=== PATIENT | male | born 1980 | race Caucasian/White ===

== ENCOUNTER → 2020-07-21 15:06 | Outpatient (CLI) | payer OTHER, SELFPAY ==
--- NOTE | ~2020-07-21 | MR_ITS ---
EXAMINATION: MR lumbar spine wo con DATE: 07/21/2020 16:04 INDICATION: Chronic low back pain. TECHNIQUE: Magnetic resonance imaging (MRI) of the lumbar spine was performed without intravenous con trast. Sequences included sagittal T2-weighted FSE, sagittal T2-weighted FS FSE, sagittal T1-weighted FSE, and axial T2-weighted FSE. COMPARISON: Lumbar spine MRI 03/28/2015 FINDINGS: There is 3 mm retrolisthesis of L5 on S1. There are Schmorl's nodes at T11-T12. There is mi ldly decreased disc height at L3-L4 and severely decreased disc height at L5-S1. The distal spinal co rd signal intensity is normal. The conus medullaris is at L1. The following disc levels are specifica lly discussed: L1-L2: The disc does not extend beyond the endplate margin. There is mild bilateral facet joint osteo arthritis. There is no neural foraminal stenosis. There is no central canal stenosis. L2-L3: The disc does not extend beyond the endplate margin. There is moderate right and mild left fac et joint osteoarthritis. There is no neural foraminal stenosis. There is no central canal stenosis. L3-L4: The disc is mildly bulging. There is severe bilateral facet joint osteoarthritis. There is mil d bilateral neural foraminal stenosis. There is no central canal stenosis. L4-L5: The disc is mildly bulging. There is severe bilateral facet joint osteoarthritis. There is mil d bilateral neural foraminal stenosis. There is no central canal stenosis. L5-S1: The disc is bulging and has an annular fissure. There is moderate bilateral facet joint osteoa rthritis. There is mild right and moderate left neural foraminal stenosis. There is mild central geovanna l stenosis. IMPRESSION: 1. Moderate lumbar spondylosis, worsened from 03/28/2015. Reviewed, dictated and finalized at location A.
== END ==
PROVIDERS: Visit Provider Pain Medicine Interventional Pain Medicine
DX: M47.26 Other spondylosis with radiculopathy, lumbar region (principal); Z79.891 Long term (current) use of opiate analgesic
CPT/HCPCS: 72148

== ENCOUNTER 2021-09-11 02:29 | Observation (INO) | payer OTHER, SELFPAY ==
[2021-09-11] VITALS (18 sets, daily range): BP systolic 144–165; BP diastolic 80–93; PULSE 63–105; RESP 12–23; TEMP 36–36.6; O2SAT 91–99; BMI 40.4
--- NOTE | ~2021-09-11 | XR_ITS ---
EXAMINATION: XR abdomen/kub 1V EXAM DATE: 09/11/2021 03:20 INDICATION: Epigastric abdominal pain, history diverticulitis. TECHNIQUE: Frontal projection of the upper abdomen, frontal projection lower abdomen/pelvis for inter pretation. There is no prior study for comparison. FINDINGS: There are cholecystectomy clips. There is expected amount of colonic stool and gas. No small bowel dilation, nonobstructive bowel gas pattern. There are no suspicious calcifications jennifer ntified. There is no organomegaly suspected. The bones are unremarkable. There is no free intra peritoneal air. The lung bases are clear. IMPRESSION: Unremarkable abdomen x-ray exam. Reviewed, dictated and finalized at location A. INE MECHANIC
--- NOTE | ~2021-09-11 | CT_ITS ---
EXAMINATION: CTA abdomen pelvis EXAM DATE: 09/11/2021 06:01 INDICATION: Severe abdominal pain out of proportion. TECHNIQUE: Spiral CT angiogram of the abdomen and pelvis was performed following injection of 100 mL Omnipaque 350 solution contrast. Axial, coronal and sagittal images were reviewed. Maximum intensity projection 3-D reconstructions of the aorta were created by the technologist on dedicated workstation . The dose-length product (DLP) for this examination was 1795.15 mGy-cm. The exposure was tailored according to patient size (auto mA exposure control), and iterative reconstruction (ASIR) was used as additional dose reduction technique. Comparison is made to prior examination from earlier same date. FINDINGS: The aorta is normal in caliber. There is no aortic dissection. The mesenteric vessels enhan ce as expected. No stenosis. There is no nephrolithiasis or hydronephrosis. The prostate is unrema rkable. The bladder is unremarkable. There is hepatic steatosis without suspicious focal lesion jennifer ntified. Spleen, adrenal glands, pancreas are unremarkable. There are cholecystectomy clips. There is no retroperitoneal or pelvic lymphadenopathy. Small left inguinal fat-containing hernia. There is mild edema within the mesentery of the small bowel. There is mildly dilated mid small bowel without discrete transition point. Suspect some mild ileal wall thickening. Consider enteritis. There is moderate descending and sigmoid colonic colonic diverticulosis. There is no adjacent inflammator y change to suggest diverticulitis. The appendix is normal. There is expected amount of colonic stoo l. No free intraperitoneal gas. The heart is normal in size. There are no pericardial or pleural effusions. The lung bases are unremarkable. There are no osteoblastic or osteolytic lesions identi fied. IMPRESSION: 1. Persistent mild mid small bowel dilation and suspect mild ileal wall edema distal to this. Consid er enteritis. Vasculature normal. 2. Moderate colonic diverticulosis. 3. Subacute right L1-L3 transverse process fractures. 4. Hepatic steatosis. Reviewed, dictated and finalized at location A. SCRUB TECH IMPRESSION: 1. Persistent mild mid small bowel dilation and suspect mild ileal wall edema distal to this. Consider enteritis. Vasculature normal. 2. Moderate colonic diverticulosis. 3. Subacute right L1-L3 transverse process fractures. 4. Hepatic steatosis.
--- NOTE | ~2021-09-11 | CT_ITS ---
EXAMINATION: CT abdomen pelvis w con EXAM DATE: 09/11/2021 05:02 INDICATION: Upper abd pain, vomiting. TECHNIQUE: Spiral CT of the abdomen and pelvis was performed following intravenous injection of 100 m L Omnipaque 350. Axial, coronal and sagittal images of the abdomen and pelvis were reviewed. The do se-length product (DLP) for this examination was 1727.83 mGy-cm. The exposure was tailored according to patient size (auto mA exposure control), and iterative reconstruction (ASIR) was used as addition al dose reduction technique. Comparison is made to prior examination from 03/01/2015. FINDINGS: The liver, spleen, adrenal glands and pancreas are unremarkable. Gallbladder is unremarkab le. No biliary obstruction. Portal and splenic veins are patent. Kidneys enhance symmetrically. T here is no hydronephrosis. The prostate is unremarkable. The bladder is unremarkable. There is no retroperitoneal or pelvic lymphadenopathy. Small left inguinal fat-containing hernia. The appendix is normal. There is moderate scattered colonic diverticulosis. There is no adjacent inf lammatory change to suggest diverticulitis. Mild nonspecific mesenteric edema, with mildly dilated mi d small bowel loops and possible ileal wall edema distal to this. No discrete transition point and th e vascularity appears to be enhancing normally. Consider enteritis. There is expected amount of colon ic stool. No free intraperitoneal gas. The heart is normal in size. There are no pericardial or pleural effusions. The lung bases are unremarkable. There are no osteoblastic or osteolytic lesions identified. There are right L1-L3 subacute transverse process fractures. IMPRESSION: 1. Findings suspicious for enteritis. 2. Subacute right L1-L3 transverse process fractures. 3. Moderate colonic diverticulosis. Reviewed, dictated and finalized at location A. ER SUPERVISOR
--- NOTE | ~2021-09-11 | XR_ITS ---
EXAMINATION: XR chest 1V portable EXAM DATE: 09/11/2021 03:20 INDICATION: Low chest, epigastric pain . TECHNIQUE: Portable AP frontal chest x-ray was obtained. There is no prior study for comparison. FINDINGS: The lungs are clear. There are no pleural effusions. Cardiac silhouette is prominent but magnified on this AP technique. There is no pneumothorax suspected. The bones and soft tissues are unremarkable. IMPRESSION: No acute cardiopulmonary findings. Reviewed, dictated and finalized at location A. NEERING LIBRARIAN
--- NOTE | 2021-09-11 03:04 | ECG_ITS ---
Measurements Intervals [place] Rate: 83 P: 24 MS: 150 QRS: 48 QRSD: 94 T: 44 QT: 361 QTc: 426 Interpretive Statements SINUS RHYTHM NORMAL ECG Electronically Signed On 09-11-2021 6:42:49 [employer]LET [employer]ONE POSITIONER by Javier Hodges D.O.
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
[2021-09-11 03:29] LABS: Basophils Absolute Auto 0.1 K/mm3 (0.0-0.1); Basophils Percent Auto 0.6 % (0.2-1.2); Eosinophils Absolute Auto 0.3 K/mm3 (0-0.3); Eosinophils Percent Auto 2.2 % (0-4.4); Hematocrit 47.2 % (42.0-52.0); Hemoglobin 16.7 g/dL (14.0-18.0); Immature Granulocyte Absolute 0.04 K/mm3 (0.00-0.031); Immature Granulocyte Percent A 0.3 % (0-0.5); Lymphocytes Absolute Auto 2.24 K/mm3 (0.9-3.2); Lymphocytes Percent Auto 15.5 % (18.3-44.2); Mean Corpuscular HGB Conc 35.4 g/dl (32-36); Mean Corpuscular Hemoglobin 30.3 pg (26-34); Mean Corpuscular Volume 85.7 fl (80-100); Mean Platelet Volume 10.6 fl (7.4-10.4); Monocytes Absolute Auto 0.9 K/mm3 (0.1-0.6); Monocytes Percent Auto 5.9 % (2.6-8.5); Neutrophils Absolute Auto 10.9 K/mm3 (1.3-6.7); Neutrophils Percent Auto 75.5 % (45.5-73.1); Platelet Count Result 323 k/mm3 (150-375); Red Blood Count 5.51 M/mm3 (4.6-6.20); Red Cell Distribution Width 12.4 % (11.5-14.5); White Blood Count 14.4 K/mm3 (4.5-10.0)
[2021-09-11] MEDS: ONDANSETRON INJ 4 MG/2 ML VIAL IV PUSH (03:39)
[2021-09-11] MEDS: HYDROmorphone HCL INJ (*CRX) 1 MG/ML SYR 0.5 MG IV PUSH ×2 (03:39→04:12)
[2021-09-11] MEDS: SODIUM CHLORIDE 0.9% IV 1,000 ML 999 ML IV CONT ×2 (03:41→05:37)
[2021-09-11 03:52] LABS: Alanine Aminotransferase 58 U/L (4-50); Albumin Level 4.7 g/dL (3.5-5.1); Alkaline Phosphatase 105 U/L (38-126); Anion Gap 9 mmol/L (8-16); Aspartate Amino Transferase 42 U/L (17-59); Bilirubin,Total 0.8 mg/dL (0.2-1.3); Blood Urea Nitrogen 13 mg/dL (9-20); Calcium 9.5 mg/dL (8.4-10.2); Carbon Dioxide 23 mmol/L (22-30); Chloride 100 mmol/L (98-107); Estimated CRCL calculation 154 ml/min; Estimated Glomerular Filt Rate > 60; Glucose 237 mg/dL (65-110); Lipase 122 U/L (23-300); Potassium 4.6 mmol/L (3.4-5.0); Sodium 132 mmol/L (137-145)
[2021-09-11 03:56] LABS: Lactic Acid Reflex 2.3 mmol/L (0.7-2.1)
[2021-09-11] MEDS: HYDROmorphone HCL INJ (*CRX) 1 MG/ML SYR IV PUSH (05:43)
[2021-09-11 06:38] LABS: Reflex Lactic Acid Yes or No Add Lactic
[2021-09-11 07:11] LABS: Add Urine Microscopic? NO; Appearance Urine Clear (Clear); Bilirubin Urine Negative (Negative); Blood Urine Negative (Negative); Color Urine Yellow (Yellow); Glucose Urine UA Negative (Negative); Ketones Urine Negative (Negative); Leukocyte Esterase Ur Negative LEU/UL (Negative); Nitrate Urine Negative (Negative); Protein Urine Negative (Negative); Urobilinogen Urine Negative mg/dL (<2.0)
[2021-09-11 07:13] LABS: Lactic Acid 1.8 mmol/L (0.7-2.1)
[2021-09-11 07:45] LABS: Specific Grav Ur 1.054 (1.001-1.035)
[2021-09-11] MEDS: MORPHINE SULFATE (*CRX) 4 MG/ML INJ IV PUSH ×3 (08:55→18:42)
--- NOTE | 2021-09-11 10:53 | ADMGEN ---
This patient, Hai Mercer, was admitted to [facility] Surg Room 312-01. Patient/family oriented to hospital policies and general routines including ID bracelet, bed and alarms, visiting hours, pain management, procedures, bathroom and other care routines, personal items, smoking policy, room service/diet, and visiting hours. Information on how to activate the Rapid Response Team has been discussed. Patient/Family are encouraged to report perceived risks to care and to ask questions if they do not understand what they are told or what they should do. Mother at bedside. Pt reports pain is better, but still has some discomfort.
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
[2021-09-11] MEDS: SODIUM CHLORIDE 0.9% IV 1,000 ML 125 ML IV CONT ×2 (13:19→21:50)
[2021-09-11 16:41] LABS: Glucose Point of Care 143 mg/dl (65-105)
[2021-09-11] MEDS: GABAPENTIN 300 MG CAPSULE PO (20:10)
--- NOTE | 2021-09-11 23:54 | PCRCNOTE ---
PT states they wear a cpap at home sometimes, but not all the time. They stated they did not want to wear one of our machines and wont wear it even if it was brought into their room.
[2021-09-12] MEDS: MORPHINE SULFATE (*CRX) 4 MG/ML INJ IV PUSH (05:13)
[2021-09-12] MEDS: SODIUM CHLORIDE 0.9% IV 1,000 ML 125 ML IV CONT (05:51)
[2021-09-12 06:42] LABS: Alanine Aminotransferase 50 U/L (4-50); Albumin Level 3.9 g/dL (3.5-5.1); Alkaline Phosphatase 64 U/L (38-126); Anion Gap 7 mmol/L (8-16); Aspartate Amino Transferase 29 U/L (17-59); Bilirubin,Total 0.6 mg/dL (0.2-1.3); Blood Urea Nitrogen 8 mg/dL (9-20); Calcium 8.9 mg/dL (8.4-10.2); Carbon Dioxide 29 mmol/L (22-30); Chloride 102 mmol/L (98-107); Estimated CRCL calculation 156 ml/min; Estimated Glomerular Filt Rate > 60; Glucose 165 mg/dL (65-110); Lipase 85 U/L (23-300); Potassium 4.2 mmol/L (3.4-5.0); Sodium 138 mmol/L (137-145)
[2021-09-12 06:53] LABS: Basophils Percent Auto 0.6 % (0.2-1.2); Eosinophils Absolute Auto 0.4 K/mm3 (0-0.3); Eosinophils Percent Auto 5.6 % (0-4.4); Hematocrit 44.5 % (42.0-52.0); Hemoglobin 15.2 g/dL (14.0-18.0); Immature Granulocyte Absolute 0.02 K/mm3 (0.00-0.031); Immature Granulocyte Percent A 0.3 % (0-0.5); Lymphocytes Absolute Auto 1.71 K/mm3 (0.9-3.2); Lymphocytes Percent Auto 24.5 % (18.3-44.2); Mean Corpuscular HGB Conc 34.2 g/dl (32-36); Mean Corpuscular Hemoglobin 29.9 pg (26-34); Mean Corpuscular Volume 87.4 fl (80-100); Mean Platelet Volume 10.6 fl (7.4-10.4); Monocytes Absolute Auto 0.5 K/mm3 (0.1-0.6); Monocytes Percent Auto 7.2 % (2.6-8.5); Neutrophils Absolute Auto 4.3 K/mm3 (1.3-6.7); Neutrophils Percent Auto 61.8 % (45.5-73.1); Platelet Count Result 259 k/mm3 (150-375); Red Blood Count 5.09 M/mm3 (4.6-6.20); Red Cell Distribution Width 12.6 % (11.5-14.5)
[2021-09-12] MEDS: ENOXAPARIN 40 MG/0.4 ML SYRINGE SUB-Q (08:35)
[2021-09-12] MEDS: buPROPion HCL XL (24 HR) 150 MG TABCR PO (08:35)
[2021-09-12] MEDS: PANTOPRAZOLE SODIUM IV 40 MG VIAL IV PUSH (08:35)
[2021-09-12 09:15] LABS: Glucose Point of Care 160 mg/dl (65-105)
[2021-09-12] MEDS: ACETAMINOPHEN 325 MG TABLET 650 MG PO (12:58)
--- NOTE | 2021-09-12 13:33 | PM.DS ---
DS: Admitting Diagnosis Discharge Date 09/12/21 Admitting Diagnosis Abdominal pain DS: Discharge Diagnosis Discharge Diagnosis (1) Enteritis: Code(s): K52.9 - Noninfective gastroenteritis and colitis, unspecified Status: Acute Assessment and Plan: Patient presents with acute onset of abdominal pain. CTA of the Abd/pelvis showing diverticulosis without evidence of diverticulitis, nonspecific mesenteric edema with mildly dilated mid small bowel loops and possible ileal wall edema distal to this consistent with enteritis. Suspect viral given his history of recent episodes of diarrhea. Peptic ulcer disease and/or gastritis seems less likely to explain his abdominal pain. He was started on IV fluids and clear liquid diet. Patient had multiple formed BMs and abd pain has resolved. He feels better. Diet advanced and he tolerated this well. He was able to be discharged home on 09/12/21 (2) Nausea and vomiting: Code(s): R11.2 - Nausea with vomiting, unspecified Status: Acute Assessment and Plan: Patient with nausea vomiting on the morning of admission. Probably related to pseudo obstruction from the enteritis. Started clear liquid diet and symptoms resolved. As above. (3) Hyperglycemia: Code(s): R73.9 - Hyperglycemia, unspecified Status: Acute Assessment and Plan: Glucose 237 on presentation. [place] mostly stress response but A1c 7.0. He was educated extensively about the fact that he is developing DM and recommended healthy lifestyle choices. Dietary information provided (4) Spinal fracture: Status: Acute Assessment and Plan: CTA of the abd/pelvis showing right L1-L3 subacute transverse process fractures. Pain is controlled. We resumed his home medications. DS: Summary Hospital Course Reason for hospitalization: 41yo male with history of chronic back pain and recently diagnosed with transverse process fracture L1,L2,L3 secondary to fall (seen at [facility]) and multiple abdominal surgeries presenting to the ED for evaluation of abdominal pain. Please see H&P for details Hospital Course: Please see above for details of hospital course Status at Discharge Cognitive/behavioral status at discharge: stable Time Spent with Patient Time attestation: Total time spent providing and/or coordinating discharge services: 35 miutes Time spent: Greater than 30 minutes Exam Narrative: AF 97.5 165/93 64 16 96% ra Gen - NARD Chest - CTA bilaterally, nml RR CV - RRR S1/S2 Abd - Soft, NT/ND, Positive BS Ext - No pedal edema Neuro - Alert and oriented. Nonfocal exam. Psych - Nml mood and affect Skin - Warm and dry DS: Data Data Completed and Pending Labs on day of discharge: Labs from last 24 hours 09/12/21 09/12/21 09/12/21 09:11 06:01 06:01 WBC RBC Hgb Hct MCV MCH MCHC RDW Plt Count MPV Immature Gran % (Auto) Neut % (Auto) Lymph % (Auto) [place] % (Auto) Eos % (Auto) Baso % (Auto) Lymph # (Auto) [place] # (Auto) Eos # (Auto) Baso # (Auto) Abs Immat Gran (auto) Absolute Neuts (auto) Absolute Nucleated RBC Nucleated RBC % Sodium Potassium Chloride Carbon Dioxide Anion Gap BUN Creatinine Estim Creat Clear Calc Estimated GFR Glucose POC Capillary Glucose 160 H Hemoglobin A1c 7.0 H Calcium Total Bilirubin AST ALT Alkaline Phosphatase Total Protein Albumin Lipase ANCA Screen Pending Proteinase 3 (PR3) Ab Pending Myeloperoxidase Ab Pending S.cerevisiae IgG Ab Pending S.cerevisiae IgA Ab Pending 09/12/21 09/12/21 09/11/21 06:01 06:01 16:37 WBC 7.0 RBC 5.09 Hgb 15.2 Hct 44.5 MCV 87.4 MCH 29.9 MCHC 34.2 RDW 12.6 Plt Count 259 MPV 10.6 H Immature Gran % (Auto) 0.3 Neut % (Auto) 61.8 Lymph % (Auto) 24.5 [place] % (Auto) 7.2 Eo
[2021-09-12 14:00] VITALS: BP 148/89; PULSE 95; RESP 20; TEMP 37.2; O2SAT 95
[2021-09-16 11:46] LABS: ANCA Screen Negative (Negative); Myeloperoxidase Ab <1.0 AI (<1.0); Proteinase-3 Ab <1.0 AI (<1.0); S cerevisiae Ab (IgG) 21.3 U (<=20.0)
--- NOTE | 2021-09-21 08:56 | PC.NURSE ---
IBD panel shown to Dr. Monroe. Faxed to Dr. Castaneda
== END 2021-09-12 15:00 | disposition home or self-care (01) ==
LOC: ANHED 07:31 → ANH3MEDSUR 09:47
PROVIDERS: Admitting Provider Internal Medicine; Emergency Provider Emergency Medicine; PCP Internal Medicine; Visit Provider Internal Medicine
DX: K52.9 Noninfective gastroenteritis and colitis, unspecified (principal); R11.2 Nausea with vomiting, unspecified; R73.9 Hyperglycemia, unspecified; S32.019D Unspecified fracture of first lumbar vertebra, subsequent encounter for fracture with routine healing; S32.029D Unspecified fracture of second lumbar vertebra, subsequent encounter for fracture with routine healing; S32.039D Unspecified fracture of third lumbar vertebra, subsequent encounter for fracture with routine healing; W19.XXXD Unspecified fall, subsequent encounter; F32.9 Major depressive disorder, single episode, unspecified; M54.59 Other low back pain; G89.29 Other chronic pain; E66.9 Obesity, unspecified; Z68.41 Body mass index [BMI] 40.0-44.9, adult
CPT/HCPCS: 36415; 71045; 74018; 74174; 74177; 80053; 81003; 82948; 83036; 83605; 83690; 85025; 86021; 86671; 87040; 93005; 96361; 96365; 96366; 96367; 96372; 96374; 96375; 96376; 99285; A9270; C9113; G0378; J0131; J1170; J1650; J2270; J2405; J2543; J3370; J7030; Q9967